=== PATIENT | female | born 1960 | race Caucasian/White ===

== ENCOUNTER 2016-11-10 07:07 | Day surgery (SDC) | payer OTHER ==
[2016-11-10] VITALS (13 sets, daily range): BP systolic 128–171; BP diastolic 79–99; PULSE 63–80; RESP 12–24; O2SAT 93–99
[~2016-11-10] VITALS: Ht 170.2 cm; Wt 107.6 kg
[~2016-11-10 07:07] MED LIST: ACYC400T2 PO; ALLO300T2 PO; CARV25TA2 PO; LEVO50TA6 PO; LOSA100T29 PO; Lactated Ringer's 1,000 ML IV SCH; MAGN100T6 PO; NITR100C PO; POTA20TA16 PO; SERT20OR6 PO; SPIR25TA3 PO; WARF5TAB7 PO; levoFLOXacin 500 mg Tablet PO ONE
[2016-11-10] MEDS ORDERED: Ondansetron 2 mg/mL 2 mL Inj ONE (07:08)
[2016-11-10] MEDS ORDERED: Dexamethasone 4 mg/mL Inj ONE (07:08)
[2016-11-10] MEDS ORDERED: Propofol 10,000 mCg/mL 20 mL Inj ONE (07:08)
[2016-11-10] MEDS ORDERED: Lactated Ringer's 1,000 ML IV ONE (07:25)
[2016-11-10] MEDS ORDERED: levoFLOXacin 500 mg/100 mL D5W Premix IV ONE (07:50)
--- NOTE | 2016-11-10 09:06 | PCM.HPANE ---
Patient Data Surgeon Admitting Provider: Attending Provider:Les Rutherford MD Primary Care Physician:Belen Chavez MD Other Provider:Jyoti Mcculloughingham Anesthesia Reason for Visit Left Kidney Stone Ht/WT & BMI Height (Feet): 5 Height (Inches): 7.00 Weight (Kilograms): 107.590 Body Mass Index 37.00 Allergies Coded Allergies: Penicillins (Verified Allergy, Severe, HIVES, 11/09/16) Sulfa (Sulfonamide Antibiotics) (Verified Allergy, Severe, HIVES, 11/09/16) SOFIA Inhibitors (Verified Allergy, Unknown, UNKNOWN, 11/09/16) amiloride (Verified Allergy, Unknown, UNKNOWN, 11/09/16) amlodipine (Verified Allergy, Unknown, UNKNOIWN, 11/09/16) atenolol (Verified Allergy, Unknown, UNKNOWN, 11/09/16) codeine (Verified Allergy, Unknown, UNKNOWN, 11/09/16) diltiazem (Verified Allergy, Unknown, UNKNOWN, 11/09/16) enoxaparin (Verified Allergy, Unknown, UNKNOWN, 11/09/16) famciclovir (Verified Allergy, Unknown, UNKNOWN, 11/09/16) hydrochlorothiazide (Verified Allergy, Unknown, UNKNOWN, 11/09/16) metoclopramide (Verified Allergy, Unknown, UNKNOWN, 11/09/16) olmesartan (Verified Allergy, Unknown, UNKNOIWN, 11/09/16) simvastatin (Verified Allergy, Unknown, UNKNOIWN, 11/09/16) meperidine (Verified Adverse Reaction, Severe, N&V, 11/09/16) morphine (Verified Adverse Reaction, Severe, N&V, 11/09/16) Uncoded Allergies: SPIRONALACTONE (Adverse Reaction, Unknown, UNKNOWN (PT TAKING DRUG), 11/09/16) Past Anesthesia History Anesthesia History: Denies:: Anesthesia Reactions, Malignant Hyperthermia Diabetes History Hx Diabetes?: No Current Bedside Blood Glucose: 124 MRSA MRSA: No Medications Blood Thinner: Coumadin Home Meds Incl Beta Mansoor: Yes (coreg) Date Beta Mansoor Taken: Nov 10, 2016 Time Beta Mansoor Taken: 0600 Reported Medications Warfarin Sodium 5 Mg Tablet5 Mg PO DAILY 30 Days Ref 0 TAKES 5MG ; TAKES 2.5MG 11/09/16 Spironolactone 25 Mg Qovpqq72 Mg PO DAILY #30 TABLET Ref 0 11/09/16 Sertraline HCl (Sertraline)20 Mg/1 Ml Oral.conc50 Mg PO DAILY #1 BOTTLE Ref 0 11/09/16 Potassium Chloride 20 Meq Tab.er.prt40 Meq PO DAILY 30 Days Ref 0 TAKE WITH FOOD 11/09/16 Nitrofurantoin Macrocrystal 100 Mg Fxiqgub936 Mg PO BID Ref 0 X 7 DAYS 11/09/16 Magnesium Citrate 100 Mg Aybrpl639 Mg PO DAILY 11/09/16 Losartan Potassium 100 Mg Sqfxqy966 Mg PO DAILY 11/09/16 Levothyroxine 50 Mcg Oyebpi11 Mcg PO DAILY Ref 0 11/09/16 Carvedilol 25 Mg Pjfcmb40.5 Mg PO BID Ref 0 11/09/16 Allopurinol 300 Mg Efxhmw166 Mg PO DAILY Ref 0 11/09/16 Acyclovir 400 Mg Ockjea656 Mg PO TID Ref 0 11/09/16 History History of ENT Problems?: Yes HEENT History: Positive for:: Glaucoma Denies:: Abnormal Airway Cataracts Difficult Intubation Dysphagia Hearing Problem Sinus Problem TMJ Denture Type: None Teeth Condition: Within Normal Limits Other HEENT Pertinent History: S/P TONSILLECTOMY Hx of Heart Problems?: Yes Cardiovascular History: Positive for:: Hypertension (HYPERLIPIDEMIA) Thrombophlebitis (HX OF MULT UPPER BODY DVT'S) Valvular Heart Disease (MILD TR) Denies:: Heart Murmur (ECHO 01/2007) Other Cardiac History: PT SEEN IN HEMATOLOGY 04/2007 & IS 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 HAS TAKEN HRT. Hx of Respiratory Problem?: Yes Respiratory History: Denies:: Use of C-PAP Machine (SNORES) Hx Neurologic Problems?: Yes Other Neurological Pertinent: HX OF ORAL HSV Hx of GI Problems?: No Hx of Problems?: Yes Genitourinary History: Positive for:: Kidney Stones (S/P STONE BASKET/HX PRIOR STONES LT KIDNEY STONE=CURRENT PROBLEM) Urinary Tract Infection Other Pertinent History: C/OF NAUSEA & HENATURIA Female Hx: Denies:: Currently (HAS TAKEN HRT S/P DX LAP FOR TUBAL PG) Skin History: Denies:: History Skin Disorders? Pressure Ulcers Hx Musculoskeletal Problems?: Yes Musculoskeletal History: Positive for:: Musculoskeletal Trauma (S/P FOOT RPR) Systemic Lupus (ANTICOAGULATION DISORDER) Hx of Psycho/Social Problems?: Yes Psycho Social History: Positive for:: Hx Depression Hx Surgeries?: Yes (STONE BASKET/KIDNEY STONE,FOOT RPR,HYST,TONSILS,DX LAP FOR TUBAL PG) Hx Any Other Health Problems?: Yes Other History: Positive for:: Endocrine Disease (POSS PHEOCHROMOCYTOMA) Hospitalization Thyroid Disease Denies:: Cancer Hx Diabetes: NoBedside Blood Glucose: 124 Have You Smoked inLast 12 mo: No Stop/Bang Treated for Sleep Apnea?: No Do You Have a CPAP Machine?: No S-Snoring: Do You Snore Loudly: Yes T-Tired: feel tired, fatigued: Yes O-Obsered: Observed not breath: No P-Blood Pressure: treated: Yes B- Body Mass Index > 35 kg/m2: Yes A- Age over 50: Yes N- Neck Large Circumference: Yes G- Gender Male: No AMADA Total Score: 6 AMADA Risk Assessment: Low Risk, <3 Yes Risk Assessment Category Category 1A: Patient has history of documented sleep apnea, and HAS NOT received any narcotic, sedative or anesthesia administration during this stay. Category 1B: Patient has history of documented sleep apnea, and HAS received any narcotic , sedative or anesthesia administration during this stay Category 2: Patient has SUSPECTED Obstructive Sleep Apnea, and HAS received any narcotic , sedative or anesthesia administration during this stay. Category 3: Patient has SUSPECTED Obstructive Sleep Apnea and HAS NOT received narcotic, sedative or anesthesia administration during this stay. Category 4: Outpatient in Procedural Areas with known sleep apnea or who screen positive for High Risk via the STOP/BANG questionnaire. Exam Exam Vital Signs Vital Signs Date Time Temp Pulse Resp B/P Pulse Ox O2 Delivery O2 Flow Rate FiO2 11/10/16 07:27 36.3 78 17 142/92 96 Room Air General Appearance: Oriented X3 HEENT/AIRWAY: MP 2 Lungs: Normal Air Movement Heart: Regular Rate/Rhythm Meds/Labs/Diagnostics Admission Meds Current Medications Lactated Ringer's (Lr) 1,000 ml @ ud STK-MED ONCE IV Last administered on t 07:25; Start 11/10/16 at 07:25; Stop 11/10/16 at 07:26; Status DC Bedside Blood Glucose: 124 Plan Impression Patient chart reviewed, patient interviewed and anesthestic plan with risks, benefits, and alternatives discussed, and informed consent obtained. ASA Physical Status: ASA2 Mod Systemic Disease Anesthetic Support Modalities: Arterial Line Anesthetic Plan: GA Bene/Risks/Altern/Consents: Yes HP Complete Prior to Induction: Yes Art Gonzales MD Nov 10, 2016 09:06
[2016-11-10] MEDS ORDERED: Iopamidol-300 50 mL Inj IV ONE (09:37)
[2016-11-10] MEDS ORDERED: Belladonna Alk-Opium 60 mg Rectal Suppository RECTAL ONE (10:19)
[2016-11-10] MEDS ORDERED: Lactated Ringer's 1,000 ML IV SCH (11:03)
[2016-11-10] MEDS ORDERED: Lactated Ringer's 500 ML IV PRN (11:03)
[2016-11-10] MEDS ORDERED: Ondansetron 2 mg/mL 2 mL Inj IVPUSH PRN (11:05)
[2016-11-10] MEDS ORDERED: EPHEDrine Sulfate 50 mg/mL Inj IVPUSH PRN (11:05)
[2016-11-10] MEDS ORDERED: Dexamethasone 4 mg/mL Inj IVPUSH PRN (11:05)
[2016-11-10] MEDS ORDERED: Phenylephrine 10,000 mCg/mL Inj IVPUSH PRN (11:05)
[2016-11-10] MEDS: fentaNYL-PF 50 mCg/mL 2 mL Inj IVPUSH PRN ×4 (11:11→12:07)
[2016-11-10] MEDS ORDERED: hydrOXYzine Inj 50 MG/1 mL SDV IM ONE ×2 (11:21→11:35)
[2016-11-10] MEDS ORDERED: EPHEDrine Sulfate 50 mg/mL Inj ONE (11:21)
--- NOTE | 2016-11-10 11:22 | PCM.SURGPO ---
Immediate Operative Note Date of Surgery: Nov 10, 2016 Pre Operative Diagnosis L renal calculi Post Operative Diagnosis L renal calculi Procedure Cystoscopy, L ureteroscopy, Holmium laser lithotripsy, basket extraction of calculi fragments, and L ureteral stent placement Surgeon and Meat Smoker Surgeon: Les Rutherford MD Assistants: None Findings Cystoscopy revealed normal urethra, normal bladder with no bladder tumors, lesions, or calculi, and B/L ureteral orifices in normal position. L semi- rigid ureteroscopy revealed no calculi in L distal or L mid ureter. A 12/14F x 35cm ureteral access sheath was placed in L ureter. L flexible ureteroscopy revealed no calculi in L proximal ureter, approx. 6mm L renal pelvis calculus, and approx. 3mm L mid pole renal calculus. Holmium laser lithotripsy and basket extraction of calculi fragments were performed. L ureteral stent was placed. Complications There were no periprocedural complications identified. Surgical Specimen Removed: Yes Specimen sent to Pathology: No Surgical Specimen description: L renal calculi fragments sent to lab for stone analysis Anesthetic Administered: GA Grafts, Implants: Other (5F x 22-32cm multi-length L ureteral JJ stent (no string)) Output, Estimated Blood Loss: <5 Blood Admin during surgery: No Additional information Patient to return to see me in 2-2.5 weeks for cystoscopy, stent removal, and post-op visit. Will leave stent in for 2-2.5 weeks secondary to mildly narrowed L distal ureter and difficulty encountered in passing ureteroscope and ureteral access sheath through L distal ureter. Les Rutherford MD Nov 10, 2016 11:22
[2016-11-10] MEDS ORDERED: EPHEDrine Sulfate 50 mg/mL Inj IM ONE (11:35)
--- NOTE | 2016-11-10 11:48 | PCM.DISURG ---
Surgical Discharge Instruction Date of Service Nov 10, 2016 Dates of Hospitalization Date of Hospital Admission Nov 10, 2016 Providers Admitting Physician: Les Rutherford MD Primary Care Physician: Belen Chavez MD Attending Physician: Les Rutherford MD Discharge Diagnosis Discharge Diagnosis L renal calculi Post Operative diagnosis L renal calculi Diet Discharge Diet: No restrictions, Other (Drink at least 10-12 8oz. glasses (3 liters) of fluids per day) Activity Discharge Activity-General: No driving while taking narcotic, Other (No strenuous exercise/activity or moderate or heavy lifting (>10 lbs.) for 1-2 weeks) Dressing and Incisional Care Hygiene: May shower Follow Up Plan Follow-up Provider (F9): Les Rutherford MD Follow-up appointment: Weeks (2-2.5 weeks for cystoscopy, stent removal, and post-op visit) Call your provider for: Fever, Chills, Vomiting, Other (Pain uncontrolled by pain medication) Les Rutherford MD Nov 10, 2016 11:48
[2016-11-10] MEDS ORDERED: HYDROcodone-APAP 5-325 mg Tablet PO PRN (11:50)
[2016-11-10] MEDS ORDERED: oxyCODONE-Acetamin 5-325 mg Tablet PO PRN (11:50)
[2016-11-10] MEDS ORDERED: Promethazine 12.5 mg/50 mL D5W IV PRN ×2 (12:30)
[2016-11-10] MEDS ORDERED: Promethazine Inj 12.5 MG in 0.9% Sodium Chloride 100 ML IV PRN ×3 (12:31→12:40)
--- NOTE | 2016-11-10 12:52 | PCM.ANEP1 ---
Post Anesthesia PACU Phase 1 Assessment Vital Signs Vital Signs Date Time Temp Pulse Resp B/P Pulse Ox O2 Delivery O2 Flow Rate FiO2 11/10/16 12:25 36.6 71 17 161/99 94 Nasal Cannula 2 11/10/16 12:15 72 18 160/98 94 Nasal Cannula 2 11/10/16 12:00 75 17 163/89 95 Nasal Cannula 2 11/10/16 11:45 70 12 171/98 99 Nasal Cannula 4 11/10/16 11:30 72 13 148/96 97 Nasal Cannula 4 11/10/16 11:15 36.2 76 14 128/79 97 Nasal Cannula 4 11/10/16 11:10 19 156/94 98 Simple Mask 10 11/10/16 11:05 80 18 165/95 99 Simple Mask 10 11/10/16 11:00 80 24 130/87 98 Simple Mask 10 11/10/16 10:56 36.6 131/87 11/10/16 07:27 36.3 78 17 142/92 96 Room Air Anesthetic Administered: GA Level of Alertness: Awake, talking Pain: No Nausea or Vomiting: No CV Function & Hydration Stable: Yes Airway Device: Oralpharangeal Airway Lungs: Normal Air Movement PACU Phase 2 Assessment Patient Instructions Provided: N/A Art Gonzales MD Nov 10, 2016 12:52
[2016-11-10] MEDS ORDERED: HYDROmorphone 1 mg/mL Inj IVPUSH PRN (14:45)
--- NOTE | 2016-11-10 16:40 | DRSVH ---
PROCEDURE: X-RAY RETROGRADE UROGRAPHY INDICATIONS: STONE/ STENT TECHNIQUE: 3 intra-operative images acquired by the Urology service. COMPARISON: [facility], CT, CT ABD PELVIS W&WO CON IVP, 10/03/2016, 14:34. FINDINGS: Left renal collecting system has been opacified which appears normal and no intraluminal f illing defects are seen. Only a small portion of the proximal ureter is opacified which is normal. No extravasation of contrast media. Ureteral stent placed. IMPRESSION: Normal appearance of the left renal collecting system and visualized portions of the proximal left ur eter. Ureteral stent placement. Dictated by: Ramos Mcclellan RRA Interpreted: Susan Murphy MD on 11/10/2016 at 13:18 Approved by: Susan Murphy MD, PhD on 11/10/2016 at 16:38
--- NOTE | 2016-11-12 06:08 | OP ---
[address] [address] OPERATIVE REPORT PATIENT: CARA DE LA CRUZ : 1960 MR#: [id number] ADMIT: 11/10/2016 JOB ID: [id number] DATE OF SURGERY: 11/10/2016 PREOPERATIVE DIAGNOSIS(ES): Left renal calculi. POSTOPERATIVE DIAGNOSIS(ES): Left renal calculi. PROCEDURE: 1. Cystoscopy. 2. Left ureteroscopy. 3. Holmium laser lithotripsy. 4. Basket extraction of calculi fragments. 5. Left ureteral stent placement. SURGEON: Les Rutherford MD. ASSISTANTS: None. ANESTHESIA: General. ESTIMATED BLOOD LOSS: Less than 5 mL. SPECIMENS: Left renal calculi fragments sent to the lab for stone analysis. DRAINS: A 22-32 cm x 5-[place]izen [place] multi-length left ureteral double-J stent. COMPLICATIONS: None. CONDITION: Stable. FINDINGS: Cystoscopy revealed normal urethra, normal bladder with no bladder tumors, lesions, or calculi and bilateral ureteral orifices in normal position. Left semi-rigid ureteroscopy revealed no calculi in left distal or left mid ureter. A 12/14-[place] x 35 cm ureteral access sheath was placed into the left ureter. Left flexible ureteroscopy revealed no calculi in left proximal ureter, an approximately 6 mm left renal pelvis calculus and an approximately 3 mm left mid pole renal calculus. Holmium laser lithotripsy and basket extraction of calculi fragments were performed. Left ureteral stent was placed. INDICATIONS: The patient is a 56-year-old female with left renal calculi and gross hematuria. The patient now presents for cystoscopy, left ureteroscopy, holmium laser lithotripsy, possible basket extraction of calculi fragments and left ureteral stent placement. DESCRIPTION OF PROCEDURE: The patient was brought to the operating room and placed supine on the operating room table. The patient was Levaquin IV antibiotic. Sequential compression device boots were placed. General anesthesia was administered. The patient was brought down into the dorsal lithotomy position. The patient was prepped and draped in a standard surgical fashion. A 22-Cit[place] rigid cystoscope was placed through the urethra and into the bladder without difficulty. Cystoscopy revealed normal urethra, normal bladder with no bladder, tumors, lesions, or calculi, and bilateral ureteral orifices in normal position. An angle tip UltraTrack guidewire was passed into the left renal orifice and passed up the left ureter, into the left renal pelvis. The cystoscope was removed from the patient. The guidewire was secured to the drape with a Jen clamp and a safety wire. A semi-rigid ureteroscope was passed through the urethra and bladder and into the left ureteral orifice with assistance of a PTFE guidewire. Left semi-rigid ureteroscopy revealed no calculi in left distal and left mid ureter. The PTFE guidewire was advanced up left ureter into the left renal pelvis. The semi-rigid ureteroscope was removed from the patient. A 12/14-[place] x 35 cm ureteral access sheath was placed. Ureteral access sheath was passed over the PTFE guidewire through the urethra and bladder and up the left ureter, into the left mid ureter. The inner portion of the sheath and PTFE guidewire were removed from the patient. A flexible ureteroscope was passed through the ureteral access sheath into the left proximal ureter. Left flexible ureteroscopy revealed no calculi in the left proximal ureter, an approximately 6 mm left renal pelvis calculus and an approximately 3 mm left mid pole renal calculus. The calculi were fragmented into small fragments using holmium laser lithotripsy using a 272 micron holmium laser fiber. Basket extraction of calculi fragments was performed using a 2.2-[place] NCircle Nitinol basket and calculi fragments were sent to the Lab for stone analysis. Left renal pelvis and all calices were visualized. No significant 2 mm or larger calculi fragments were seen. A small amount of contrast was instilled into the left renal collecting system to illuminate the left renal collecting system to aid in stent placement. The flexible ureteroscope and ureteral access sheath were backed out of the left ureter, and the entire left ureter was visualized. No significant 2 mm or larger calculi fragments were seen. The flexible ureteroscope and medial access sheath were removed from the patient. The rigid cystoscope was passed over the safety guidewire, through the urethra and into the bladder. A 22-32 cm x 5-[place] multi-length ureteral double-J stent, with the stent string removed prior to stent placement, was passed over the guidewire through the cystoscope and passed up the left ureter and placed so the proximal pigtail was located in the left renal pelvis and distal pigtail was located in the bladder. The guidewire was removed. Correct positioning of the stent was confirmed both fluoroscopically and under direct visualization using cystoscope. Good efflux of contrast could be seen draining from the distal end of the stent into the bladder further confirming correct stent positioning. Thus, a left ureteral stent was placed. The bladder was drained via the cystoscope. The cystoscope was removed from the patient. The skin was cleaned and dried. The patient was placed in supine position. The patient was awakened from general anesthesia and transferred to the recovery room in stable condition. The patient tolerated the procedure well. Of note, left renal calculi fragments were sent to the Lab for stone analysis. The postoperative plan is for the patient to return to see me in 2 to 2-1/2 weeks for cystoscopy, stent removal and postop visit. Will leave the stent in for 2 to 2-1/2 weeks secondary to mildly narrowed left distal ureter and difficulty encountered in passing ureteroscope and ureteral access sheath through the left distal ureter.
[2016-11-21 09:12] LABS: Stone Color Tan (.)
== END 2016-11-10 23:59 | disposition home or self-care (01) ==
LOC: SAS 07:07
PROVIDERS: ATTEND Urology
DX: N20.0 Calculus of kidney (principal); I10 Essential (primary) hypertension; Z86.718 Personal history of other venous thrombosis and embolism; Z79.01 Long term (current) use of anticoagulants
CPT/HCPCS: 52356; 74420; 82360; J1100; J1170; J2250; J2405; J3010; J3410; J7120; Q9967